=== PATIENT | female | born 1960 | race Two or more races ===

== ENCOUNTER 2018-11-29 13:18 | Outpatient (CLI) | payer OTHER ==
[~2018-11-29] VITALS: Ht 157.5 cm; Wt 63.0 kg
[2018-11-29] MEDS ORDERED: OMEPRAZOLE20 M3 ORAL (14:07)
[2018-11-29] MEDS ORDERED: ATORVASTATIN CA20 MG ORAL (14:07)
[2018-11-29 14:09] VITALS: BP 123/77
--- NOTE | 2018-12-04 09:30 | GI Initial Consult Note ---
History of Present Illness General Date patient seen: Nov 29, 2018 Time patient seen: 09:28 Referring physician: [place] Reason for Consultation: Colonoscopy Screening Present Illness HPI This is a 58-year-old female patient presents today with GERD and routine colonoscopy screening. The patient currently denies any abdominal pain. Denies any nausea vomiting or diarrhea. Denies any unintentional weight loss or changes in dietary habits. No signs of abuse or neglect. Patient is not fall risk. Home Meds Reported Medications Omeprazole (OMEPRAZOLE) 20 Mg Tablet.dr, 20 MG ORAL DAILY, TAB 11/29/18 Atorvastatin Calcium* (ATORVASTATIN CALCIUM*) 20 Mg Tablet, 20 MG ORAL BEDTIME, TAB 11/29/18 Med list reviewed/reconciled: Yes Allergies: Coded Allergies: No Known Allergies (Unverified , 11/29/18) Patient History History Provided By: Patient PMH Narrative GERD Hypercholesteremia Past Surgical History: none Pertinent Family History: none Social History: Denies: smoking, alcohol use, drug use, other Review of Systems All Other Systems: negative except mentioned in HPI Physical Exam Temperature 97.7 Blood pressure 133/71 Pulse 83 100% room air Height 5 2 Weight 138 pounds Sp02 EP Interpretation: reviewed, normal General Appearance: well appearing, no apparent distress, alert Head: normocephalic EENT: PERRL/EOMI, normal ENT inspection Neck: supple Respiratory: normal breath sounds, no respiratory distress Cardiovascular: normal rate Gastrointestinal: normal inspection, non tender, soft, normal bowel sounds, non -distended Rectal: deferred Genitourinary: no CVA tenderness Musculoskeletal: normal inspection, back normal Neurologic: normal inspection, alert, oriented x3, responsive Psychiatric: normal inspection, judgement/insight normal, memory normal Skin: normal inspection, normal color, no rash, warm/dry, palpation normal, well hydrated Lymphatic: normal inspection, no adenopathy GI: Plan Problems: (1) GERD (gastroesophageal reflux disease) (2) Colonoscopy planned Plan Colonoscopy to be scheduled pending PA, will contact patient. - CLD & (Nulytely/Suprep/Movi-Prep) prep instructions given and acknowledged by patient. - NPO @ [place] day prior procedure explained. Will follow with additional recs post procedure. Seen with Dr. Eden. Thank you for this patient referral. The patient was seen and examined at bedside and all new and available data was reviewed in the patients chart. I agree with the above findings, impression and plan. (Patient seen earlier today. Signature stamp does not reflect patient encounter time.). - MD Eliana PortilloBenson HospitalLaila MYERS Dec 04, 2018 09:30
== END 2018-11-29 15:18 | disposition home or self-care (01) ==
LOC: PAN 13:18
DX: Z12.11 Encounter for screening for malignant neoplasm of colon (principal); K21.9 Gastro-esophageal reflux disease without esophagitis; E78.00 Pure hypercholesterolemia, unspecified
CPT/HCPCS: 99201

== ENCOUNTER 2019-04-02 09:09 | Outpatient (CLI) | payer OTHER ==
[~2019-04-02 09:09] MED LIST: ATORVASTATIN CA20 MG ORAL; OMEPRAZOLE20 M3 ORAL
--- NOTE | 2019-04-02 09:53 | General Progress Note ---
Assessment/Plan Problem List: (1) Colon polyps ICD Codes: K63.5 - Polyp of colon SNOMED: 91227994 (2) GERD (gastroesophageal reflux disease) ICD Codes: K21.9 - Gastro-esophageal reflux disease without esophagitis SNOMED: 333412593 Assessment/Plan: repeat colonoscopy in 5 years Subjective ROS Limited/Unobtainable: Yes Allergies: Coded Allergies: No Known Allergies (Unverified , 11/29/18) Objective General Appearance: alert EENT: normal ENT inspection Neck: supple Cardiovascular: normal rate Respiratory/Chest: decreased breath sounds Abdomen: normal bowel sounds, non tender, soft Extremities: non-tender Dayron Eden MD Apr 02, 2019 09:53
== END 2019-04-02 11:09 | disposition home or self-care (01) ==
LOC: PAN 09:09
DX: K63.5 Polyp of colon (principal); K21.9 Gastro-esophageal reflux disease without esophagitis
CPT/HCPCS: 99212

== ENCOUNTER 2019-09-03 08:59 | Outpatient (CLI) | payer OTHER ==
--- NOTE | 2019-09-03 09:17 | General Progress Note ---
Assessment/Plan Assessment/Plan: Assessment/Plan Problem List: (1) Colon polyps ICD Codes: K63.5 - Polyp of colon SNOMED: 07389319 (2) GERD (gastroesophageal reflux disease) ICD Codes: K21.9 - Gastro-esophageal reflux disease without esophagitis SNOMED: 730113601 Assessment/Plan: repeat colonoscopy in 5 years plan EGD Subjective ROS Limited/Unobtainable: Yes Allergies: Coded Allergies: No Known Allergies (Unverified , 11/29/18) Objective General Appearance: alert EENT: normal ENT inspection Neck: supple Cardiovascular: normal rate Respiratory/Chest: lungs clear Abdomen: normal bowel sounds, non tender, soft Extremities: non-tender Dayron Eden MD Sep 03, 2019 09:17
[2019-09-03 10:52] VITALS: BP 129/60
== END 2019-09-03 10:59 | disposition home or self-care (01) ==
LOC: PAN 08:59
DX: K63.5 Polyp of colon (principal); K21.9 Gastro-esophageal reflux disease without esophagitis

== ENCOUNTER 2019-12-24 08:48 | Outpatient (CLI) | payer OTHER ==
[2019-12-24 09:10] VITALS: BP 143/161
--- NOTE | 2019-12-24 11:29 | General Progress Note ---
Assessment/Plan Assessment/Plan: hp neg gastritis s/p EGD recent colonoscopy per patient RTC prn Subjective ROS Limited/Unobtainable: Yes Allergies: Coded Allergies: No Known Allergies (Unverified , 11/29/18) Objective Last 24 Hour Vital Signs Date Time Temp Pulse Resp B/P (MAP) Pulse Ox O2 Delivery O2 Flow Rate FiO2 12/24/19 09:10 97.6 16 143/161 (155) 100 General Appearance: alert EENT: normal ENT inspection Neck: supple Cardiovascular: normal rate Respiratory/Chest: chest wall non-tender Abdomen: normal bowel sounds, non tender, soft Extremities: non-tender Dayron Eden MD Dec 24, 2019 11:29
== END 2019-12-24 10:48 | disposition home or self-care (01) ==
LOC: PAN 08:48
DX: K29.70 Gastritis, unspecified, without bleeding (principal)
CPT/HCPCS: 99212